=== PATIENT | male | born 1975 | race Caucasian/White ===

== ENCOUNTER 2018-12-13 14:36 | Emergency (ER) | payer OTHER ==
[~2018-12-13] VITALS: Ht 177.8 cm; Wt 83.2 kg
[~2018-12-13 14:36] MED LIST: AMOXICILLIN; AMOXICILLIN/CLA1 TA1 PO; CLARITIN; GENTAMICIN OPTHA3 GM OS; MUCINEX D 600 M1 TER PO; NORCO 325 MG-51 TAB PO; NORCO 325 MG-7.1 TAB PO; PREDNISONE20 MG PO; TESSALON PERLE200 MG PO; ZITHROMAX Z PA250 MG PO; [UNRECOGNIZED DRUG - REMARK]
[2018-12-13 14:40] VITALS: TEMP 97.1
[2018-12-13] MEDS ORDERED: ALBUTEROL0.83 MG/ML IH (14:47)
[2018-12-13] MEDS ORDERED: PREDNISONE20 MG PO (14:48)
[2018-12-13] MEDS ORDERED: TESSALON PERLE200 MG PO (14:48)
[2018-12-13] MEDS ORDERED: VIRTUSSIN PO (14:49)
[2018-12-13] MEDS ORDERED: SYNTHROID0.1 MG/TAB PO (14:50)
[2018-12-13] MEDS ORDERED: SINGULAIR 110 MG/TAB PO (14:50)
[2018-12-13] MEDS ORDERED: ZYRTEC 10MG10 MG PO (14:51)
[2018-12-13] MEDS ORDERED: ASMANEX HF200 MCG/Ac IH (14:51)
[2018-12-13] MEDS ORDERED: STIOLTO RESPIMAT4 GM IH (14:52)
[2018-12-13] MEDS ORDERED: FLONASEALLERGY NS (14:53)
[2018-12-13] MEDS ORDERED: PROAIR HFA0.09 MG/AC IH (14:53)
[2018-12-13 15:42] LABS: BASO % 0.2 % (0.0-2.0); EOS % 0.1 % (0-4.0); GRAN # 11.2 (1.4-6.5); GRAN % 85.4 % (42.2-75.2); HEMATOCRIT 49.3 % (42.0-52.0); HEMOGLOBIN 17.5 g/dl (13.5-18.0); LYMPH # 1.1 (1.2-3.4); LYMPH % 8.6 % (20.0-51.0); MEAN CELL VOLUME 93 fl (80.0-100.0); MEAN CORPUSCULAR HEMOGLOBIN 33 pg (27.0-31.0); MEAN CORPUSCULAR HGB CONC 36 g/dl (33.0-37.0); MEAN PLATELET VOLUME 10.2 fl (7.4-10.4); MONO # 0.6 (0.1-0.6); MONO % 4.3 % (1.7-9.3); PLATELET COUNT 299 K/mm3 (130-400); RED BLOOD COUNT 5.33 M/mm3 (4.20-5.60); REDCELL DISTRIBUTION WIDTH-CV 12.9 % (11.5-14.5)
[2018-12-13 15:47] LABS: ALBUMIN 4.5 gm/dL (3.5-5.0); BILIRUBIN,TOTAL 0.5 mg/dL (0.0-1.0); CALCIUM 10.7 mg/dL (8.4-10.2); CREATININE, serum 1.06 mg/dL (0.66-1.25); POTASSIUM 4.5 mmol/L (3.4-5.0); TOTAL PROTEIN 7.7 gm/dL (6.4-8.2)
[2018-12-13] MEDS ORDERED: TUSS PO (18:03)
[2018-12-13] MEDS ORDERED: IPRATROPIUM BROM3 M1 IH (18:03)
[2018-12-13 18:30] VITALS: BP 156/97; PULSE 80
== END 2018-12-13 18:32 | disposition home or self-care (01) ==
LOC: COL.ER 14:36
PROVIDERS: Emergency Medicine
DX: J45.901 Unspecified asthma with (acute) exacerbation (principal)
CPT/HCPCS: J1885; J7030

== ENCOUNTER → 2018-12-19 | Outpatient (CLI) | payer OTHER ==
[~2018-12-19] MED LIST changes: +ALBUTEROL0.83 MG/ML IH; +ASMANEX HF200 MCG/Ac IH; +FLONASEALLERGY NS; +IPRATROPIUM BROM3 M1 IH; +PROAIR HFA0.09 MG/AC IH; +SINGULAIR 110 MG/TAB PO; +STIOLTO RESPIMAT4 GM IH; +SYNTHROID0.1 MG/TAB PO; +TUSS PO; +VIRTUSSIN PO; +ZYRTEC 10MG10 MG PO
== END ==
LOC: COL.RAD 12:29
DX: R06.00 Dyspnea, unspecified (principal); R07.9 Chest pain, unspecified
CPT/HCPCS: Q9967

== ENCOUNTER → 2018-12-31 | Outpatient (CLI) | payer OTHER | LOC: COL.RAD 08:00 | DX: J98.6 Disorders of diaphragm (principal) ==

== ENCOUNTER → 2019-04-14 | Outpatient (CLI) | payer OTHER | LOC: COL.PUL 10:00 | DX: R06.02 Shortness of breath (principal) | CPT/HCPCS: J7674 ==

== ENCOUNTER → 2019-09-09 | Outpatient (CLI) | payer OTHER ==
[~2019-09-09] VITALS: Ht 177.8 cm; Wt 81.0 kg
[2019-09-09] VITALS (7 sets, daily range): BP systolic 85–135; BP diastolic 52–98; PULSE 54–79
[~2019-09-09] MED LIST changes: +GRALISE300 MG PO; +MASON NATURAL600 MG PO; +OMEGA-3 1000 MG1 CAP PO; +STRIANT30 MG PO
--- NOTE | 2019-09-09 09:35 | NUR ---
MRI completed, report from [facility], pt stood and sat in w/c, taken to rad holding area, resting in recliner, keeps eyes closed, but awakens with verbal stimuli.
--- NOTE | 2019-09-09 10:00 | NUR ---
pt remains drowsy, but takes ice chips, no c/o, rests in recliner
--- NOTE | 2019-09-09 11:15 | NUR ---
reviewed discharge inst. with pt on moderate sedation including no driving, no alcohol, may have dizziness or nausea, advance diet as tolerated, also results will be with Dr Jasmine, with verbal understanding. iv d'cd intact. walked pt in rajan tolerated well, gait steady. pt then discharged at 1125 via w/c to car with friend
== END ==
LOC: COL.RAD 08:15
DX: M75.111 Incomplete rotator cuff tear or rupture of right shoulder, not specified as traumatic (principal); M19.011 Primary osteoarthritis, right shoulder
CPT/HCPCS: J2250; J2704; J7120